=== PATIENT | male | born 1945 | race Caucasian/White ===

== ENCOUNTER 2020-02-04 14:15 | Emergency (ER) | payer MEDICARE, SELFPAY ==
[2020-02-04 14:24] VITALS: BP 123/81; PULSE 82; RESP 28; TEMP 38.1; O2SAT 96
--- NOTE | 2020-02-04 14:28 | ED.GENADULT ---
HPI - General Adult General Chief complaint: Fever Stated complaint: fever/breathing issues Time Seen by Provider: 02/04/20 14:28 Source: patient Mode of arrival: ambulatory Limitations: no limitations History of Present Illness HPI narrative: 74-year-old male patient presents to the [facility] with complaints of a fever that started yesterday morning. Patient denies any other complaints. Denies any headaches, ear pain, runny nose or stuffy nose. Denies any coughing, chest pain or shortness of breath. Denies any abdominal pain or pain with urination. Patient states he has been taking Tylenol which has brought down his fever however when the Tylenol wears off the fever goes back up. Patient states that the fever has gotten as high as 100.4. Patient states that he did go to [facility] ER yesterday and his fever was normal at that time but was never seen before he left. Related Data Home Medications Medication Instructions Recorded Confirmed No Home Medications 02/04/20 02/04/20 Allergies Allergy/AdvReac Type Severity Reaction Status Date / Time No Known Allergies Allergy Verified 02/04/20 14:43 Review of Systems Review of Systems: Narrative: CONSTITUTIONAL: Positive fever, denies chills, or sweats. EYES: Denies visual changes, redness, or discharge. ENT: Denies rhinorrhea, congestion, sore throat, or otalgia. CARDIOVASCULAR: Denies chest pain, palpitations, or edema. RESPIRATORY: Denies cough or dyspnea. GASTROINTESTINAL: Denies abdominal pain, nausea, vomiting, or diarrhea. GENITOURINARY: Denies dysuria or hematuria. SKIN: Denies rash or itching. MUSCULOSKELETAL: Denies back pain, joint pain, or myalgia. NEUROLOGIC: Denies headache, numbness, or weakness. PSYCHIATRIC: Denies anxiety or depression. PMFSH Comments At the time of my signature I agree with nursing past medical history, surgical, social, and family history. There is no relevant family history pertinent to the presenting complaint. Exam Narrative: Exam Narrative: GENERAL: Well-appearing, well-nourished, and in no acute distress. HEAD: Normocephalic, atraumatic. EYES: PERRLA and EOMI. ENT: Nares with erythema and edema noted bilaterally, no rhinorrhea or epistaxis. Mucous membranes moist. Posterior pharynx no erythema, tonsil enlargement, exudates or lesions present. Bilateral TMs are clear with no erythema or foreign bodies to the canal. NECK: Supple. No lymphadenopathy CHEST: Clear to auscultation. No respiratory distress. HEART: Regular rate and rhythm. No murmur heard. Normal peripheral pulses. ABDOMEN: Soft, nontender, nondistended, normal active bowel sounds. EXTREMITIES: Normal range of motion. No edema. SKIN: Warm, dry, no rash. NEURO: No focal deficits. Alert and oriented x3. Course Reevaluation(s) Reevaluation #1: Reevaluated patient after labs have resulted. Discussed with him that his influenza is negative, his strep is negative and his urine looks okay. Discussed with him we will send the urine off to the lab for a culture. Discussed with patient that we will also send him for COVID testing since we cannot find the reason of why he would have a fever. Discussed with patient he can continue taking the Tylenol to help keep down the fevers and if he develops worsening symptoms such as chest pain or shortness of breath he would need to go to the emergency department for further evaluation and treatment. Patient verbalized understanding denies any other questions or concerns at this time. Date: 02/04/20 Time: 14:52 Vital Signs Vital signs: Vital Signs Temperature 38.1 C H 02/04/20 14:24 Pulse Rate 82 02/04/20 14:24 Respiratory Rate 28 H 02/04/20 14:24 Blood Pressure 123/81 02/04/20 14:24 Pulse Oximetry 96 02/04/20 14:24 Temperature 38.1 C H 02/04/20 14:24 Pulse Rate 82 02/04/20 14:24 Respiratory Rate 28 H 02/04/20 14:24 Blood Pressure 123/81 02/04/20 14:24 Pulse Oximetry 96 02/04/20 14:24 Verenice
== END 2020-02-04 14:55 | disposition home or self-care (01) ==
PROVIDERS: Emergency Provider Nurse Practitioner Family
DX: R50.9 Fever, unspecified (principal); Z20.828 Contact with and (suspected) exposure to other viral communicable diseases
CPT/HCPCS: 81003; 87081; 87086; 87088; 87804; 87880; 99213; G0463

== ENCOUNTER 2024-12-27 15:00 | Outpatient (CLI) | payer MEDICARE, SELFPAY ==
--- NOTE | ~2024-12-27 | MR_ITS ---
MRI of the lumbar spine Clinical History: Spinal stenosis Technique: Axial T2-weighted images, and sagittal T1-weighted, T2-weighted, and T2 fat-sat images wer e acquired. Findings: There is no acute fracture or subluxation of the lumbar spine. No suspicious bone marrow si gnal abnormality seen. At L1-L2, there is mild diffuse disc bulge with mild to moderate facet hypertrophy. No spinal canal s tenosis. There is moderate to advanced bilateral neural foraminal narrowing. At L2-L3, there is degenerative disc narrowing with diffuse disc bulge and moderate facet hypertrophy . There is mild central canal stenosis. There is severe right neural foraminal narrowing, and moderat e left neural foraminal narrowing. At L3-L4, there is degenerative disc narrowing with diffuse disc bulge and advanced facet arthropathy . There is mild to moderate central canal stenosis. There is severe right neural foraminal narrowing, and mild left neural foraminal narrowing. At L4-L5, there is severe degenerative disc narrowing. Disc bulge and severe facet arthropathy result in severe spinal canal stenosis/thecal sac compression and severe bilateral neural foraminal comprom ise. At L5-S1, there is minimal disc bulge with moderate facet arthropathy. No central canal stenosis. The re is moderate to advanced bilateral neural foraminal narrowing. Paravertebral soft tissues are unremarkable. Impression: Severe degenerative spondylosis at L4-L5, as detailed above. Moderate to severe degenerative change a t L2-L3, L3-L4, and L5-S1. Reviewed, dictated and finalized at [facility]. Impression: Severe degenerative spondylosis at L4-L5, as detailed above. Moderate to severe degenerative change at L2-L3, L3-L4, and L5-S1.
== END 2024-12-27 15:01 | disposition home or self-care (01) ==
PROVIDERS: PCP Orthopaedic Surgery; Visit Provider Orthopaedic Surgery
DX: M48.062 Spinal stenosis, lumbar region with neurogenic claudication (principal); M47.896 Other spondylosis, lumbar region
CPT/HCPCS: 72148